=== PATIENT | female | born 1995 | race Caucasian/White ===

== ENCOUNTER 2017-03-17 15:42 | Observation (INO) ==
[2017-03-17] MEDS ORDERED: Ondansetron 4 MG/2 ML VIAL IVP ONE (15:59)
[2017-03-17] MEDS ORDERED: Ketorolac 15 MG/ML VIAL IVP ONE (15:59)
--- NOTE | 2017-03-17 16:02 | Emergency Department Note ---
Disposition Clinical Impression: Acute appendicitis Disposition: Admitted As Inpatient Condition: Good General Adult HPI - General Chief complaint: ED Abdominal Pain Stated complaint: ABD Pain Time Seen by Provider: 03/17/17 15:49 Source: patient, family Limitations: no limitations - History of Present Illness Pain Scale: 6 - Related Data Home Medications Medication Instructions Recorded Confirmed No Known Home Drugs 03/17/17 03/17/17 Allergies Allergy/AdvReac Type Severity Reaction Status Date / Time No Known Allergies Allergy Verified 03/17/17 15:44 Past Medical History - Past Medical History Medical history: Reports: no medical history Psychiatric history: Reports: no psych history - Social History Smoking Status: Never smoker Smokeless Tobacco Status: No Alcohol use: Reports: none Drug use: Reports: none Physical Exam - General Limitations: no limitations General appearance: alert, in no apparent distress Course Vital Signs Temperature 98.3 F 03/17/17 15:44 Pulse Rate 73 03/17/17 15:44 Respiratory Rate 16 03/17/17 15:44 Blood Pressure 132/87 03/17/17 15:44 O2 Sat by Pulse Oximetry 97 03/17/17 15:44 Temperature 98.3 F 03/17/17 15:44 Pulse Rate 93 03/17/17 17:06 Respiratory Rate 18 03/17/17 17:08 Blood Pressure 126/79 03/17/17 17:08 O2 Sat by Pulse Oximetry 96 03/17/17 17:06 Oxygen Delivery Oxygen Delivery Room Air Medical Decision Making - Lab Data Result diagrams: 03/17/17 16:17 03/17/17 16:17 Lab Results 03/17/17 03/17/17 03/17/17 Range/Units 15:55 15:55 16:17 WBC 8.6 (4.3-11.1) K/mcL RBC 4.40 (3.82-4.97) M/mcL Hgb 13.2 (11.5-15.4) g/dL Hct 39.3 (35.3-44.9) % MCV 89.3 (83.0-100.0) fL MCH 30.0 (28.0-33.3) pg MCHC 33.6 (31.6-35.5) g/dL RDW 11.9 (11.5-14.5) % Plt Count 202 (140-400) K/mcL MPV 9.7 (9.4-12.4) fL Immature Gran % 0.2 (0-4) % Seg Neutrophils % 65.4 % Lymphocytes % 28.4 % Monocytes % 5.6 % Eosinophils % 0.2 % Basophils % 0.2 % Neutrophils # 5.7 (1.6-8.9) K/mcL Lymphocytes # 2.5 (0.6-4.6) K/mcL Monocytes # 0.5 (0.0-1.3) K/mcL Eosinophils # 0.0 (0.0-0.6) K/mcL Basophils # 0.0 (0.0-0.2) K/mcL Sodium (136-145) mEq/L Potassium (3.5-4.5) mEq/L Chloride (98-109) mEq/L Carbon Dioxide (19-29) mEq/L BUN (7-20) mg/dL Creatinine (0.57-1.11) mg/dL Est GFR ( Amer) (> 60) Est GFR (Non-Af Amer) (> 60) BUN/Creatinine Ratio (6-26) Glucose (70-99) mg/dL Calculated Osmolality (280-300) Calcium (8.6-10.8) mg/dL Total Bilirubin (0.2-1.2) mg/dL AST (5-34) Units/L ALT (0-55) Units/L Alkaline Phosphatase (38-126) Units/L Serum Total Protein (6.0-8.3) g/dL Albumin (3.5-5.0) g/dL Globulin (2.4-3.5) g/dL Albumin/Globulin Ratio (1.1-2.2) Urine Color Yellow (Yellow) Urine Clarity Clear (Clear) Urine pH 6.5 (5.0-8.0) pH Units Ur Specific [place] 1.005 L (1.010-1.025) Urine Protein Negative (Neg-Trace) mg/dL Urine Glucose (UA) Normal (Normal) mg/dL Urine Ketones Negative (Negative) mg/dL Urine Blood Negative (Negative) Urine Nitrite Negative (Negative) Urine Bilirubin Negative (Negative) Urine Urobilinogen Normal (Normal) mg/dL Ur Leukocyte Esterase Negative (Negative) Ur Culture Indicated? NO (NO) Urine Test Negative (Negative) 03/17/17 Range/Units 16:17 WBC (4.3-11.1) K/mcL RBC (3.82-4.97) M/mcL Hgb (11.5-15.4) g/dL Hct (35.3-44.9) % MCV (83.0-100.0) fL MCH (28.0-33.3) pg MCHC (31.6-35.5) g/dL RDW (11.5-14.5) % Plt Count (140-400) K/mcL MPV (9.4-12.4) fL Immature Gran % (0-4) % Seg Neutrophils % % Lymphocytes % % Monocytes % % Eosinophils % % Basophils % % Neutrophils # (1.6-8.9) K/mcL Lymphocytes # (0.6-4.6) K/mcL Monocytes # (0.0-1.3) K/mcL Eosinophils # (0.0-0.6) K/mcL Basophils # (0.0-0.2) K/mcL Sodium 139 (136-145) mEq/L Potassium 3.3 L (3.5-4.5) mEq/L Chloride 107 (98-109) mEq/L Carbon Dioxide 26 (19-29) mEq/L BUN 9 (7-20) mg/dL Creatinine 0.78 (0.57-1.11) mg/dL Est GFR ( Amer) > 60 (> 60) Est GFR (Non-Af Amer) > 60 (> 60) BUN/Creatinine Ratio 12 (6-26) Glucose 93 (70-99) mg/dL Calculated Osmolality 286 (280-300) Calcium 9.3 (8.6-10.8) mg/dL Total Bilirubin 0.5 (0.2-1.2) mg/dL AST 18 (5-34) Units/L ALT 14 (0-55) Units/L Alkaline Phosphatase 72 (38-126) Units/L Serum Total Protein 7.2 (6.0-8.3) g/dL Albumin 4.1 (3.5-5.0) g/dL Globulin 3.1 (2.4-3.5) g/dL Albumin/Globulin Ratio 1.3 (1.1-2.2) Urine Color (Yellow) Urine Clarity (Clear) Urine pH (5.0-8.0) pH Units Ur Specific [place] (1.010-1.025) Urine Protein (Neg-Trace) mg/dL Urine Glucose (UA) (Normal) mg/dL Urine Ketones (Negative) mg/dL Urine Blood (Negative) Urine Nitrite (Negative) Urine Bilirubin (Negative) Urine Urobilinogen (Normal) mg/dL Ur Leukocyte Esterase (Negative) Ur Culture Indicated? (NO) Urine Test (Negative) Attestation Statement - Attestation Attestation: I examined this patient and my medical decision-making was reviewed with the [employer]/PA/Advanced Practice Nurse/Resident Physician. I agree with the documented findings, disposition and treatment plan as described except to the extent set forth below. Face to face time provided Patient was right-sided abdominal pain for the past one week. She is tender on exam. Positive peritoneal findings including obturator sign, voluntary guarding , mild rebound. When patient jumps at the bedside she guards. Concern for an acute surgical process including such as appendicitis. Workup in conjunction with Dr. Hartman initiated
[2017-03-17 16:04] LABS: Bilirubin,Urine Negative (Negative); Blood,Urine Negative (Negative); Clarity,Urine Clear (Clear); Color,Urine Yellow (Yellow); Glucose,Urine (UA) Normal (Normal); Ketones,Urine Negative (Negative); Leukocyte Esterase,Urine Negative (Negative); Nitrite,Urine Negative (Negative); PH,Urine 6.5 pH Units (5.0-8.0); Protein,Urine Negative (Neg-Trace); Specific Gravity,Urine 1.005 (1.010-1.025); Urobilinogen,Urine Normal (Normal)
--- NOTE | 2017-03-17 16:06 | Emergency Department Note ---
Disposition Clinical Impression: Acute appendicitis Qualifiers: Acute appendicitis type: unspecified acute appendicitis type Qualified Code(s) : K35.80 - Unspecified acute appendicitis Disposition: Admitted As Inpatient Condition: Good Time of Disposition: 17:09 Abdominal Pain HPI - General Chief Complaint: ED Abdominal Pain Stated Complaint: ABD Pain Time Seen by Provider: 03/17/17 15:49 Source: patient, family Mode of arrival: ambulatory Limitations: no limitations Nursing Notes Reviewed: Yes Vital Signs Reviewed: Yes - History of Present Illness HPI Narrative: 21-year-old female otherwise healthy presents with abdominal pain. She reports right-sided abdominal pain intermittently over the past week. Describes it as a sharp cramping sensation in the right upper quadrant. She reports some association with foods. States today was painful to walk or jump. Last night she ate cheesesteaks which made it worse. Last meal at 1100. She has been very nauseated but denies any vomiting. Denies any fevers or recent illness. Denies any chest pain or shortness of breath. Denies any urinary symptoms or vaginal bleeding. She has a history of a ruptured ovarian cyst. Denies any abdominal surgeries. Last alcohol intake February 26. She has not taken anything for pain. Pt Subjective Complaint: abdominal pain Pain Scale: 6 - Related Data Home Medications Medication Instructions Recorded Confirmed No Known Home Drugs 03/17/17 03/17/17 Allergies Allergy/AdvReac Type Severity Reaction Status Date / Time No Known Allergies Allergy Verified 03/17/17 15:44 All systems ED: reviewed and negative except as stated. Constitutional: Denies: fever, chills Cardiovascular: Denies: chest pain, dyspnea on exertion Respiratory: Denies: cough, dyspnea, wheezes Gastrointestinal: Reports: abdominal pain, nausea. Denies: vomiting, diarrhea Genitourinary: Denies: urgency, dysuria, abnormal menses Musculoskeletal: Denies: back pain Integumentary: Denies: rash, abrasion Neurological: Denies: headache Psychiatric: Denies: anxiety, depression Abdominal Pain PMH - Past Medical History Medical history: Reports: no medical history Psychiatric history: Reports: no psych history - Social History Smoking status: Never smoker Alcohol use: Reports: none Drug use: Reports: none Physical Exam - General Limitations: no limitations General appearance: alert, in no apparent distress - Head Head exam: atraumatic, normocephalic, normal inspection - Eye Eye exam: Present: normal appearance, PERRL, EOMI - ENT ENT exam: normal exam, normal oropharynx, mucous membranes moist - Neck Neck exam: Present: normal inspection, full ROM, trachea midline - Chest Chest inspection: Present: normal inspection, symmetric chest wall rise - Respiratory Respiratory exam: Present: normal lung sounds bilaterally. Absent: respiratory distress, wheezes - Cardiovascular Cardiovascular exam: Present: regular rate, normal rhythm, normal heart sounds - Abdominal Exam Abdominal exam: Present: soft, tenderness, guarding, normal bowel sounds, obturator sign, Chatterjee's sign, Rovsing's sign, tenderness at McBurney's Point. Absent: distention, rebound, rigidity Abdominal tenderness: Present: RUQ, RLQ - Extremities Exam Extremities exam: Present: normal inspection, full ROM, normal capillary refill. Absent: tenderness, pedal edema, calf tenderness - Back Exam Back exam: Present: normal inspection, full ROM. Absent: tenderness, CVA tenderness (R), CVA tenderness (L) - Neurological Exam Neurological exam: Present: alert, oriented X3 - Psychiatric Psychiatric exam: Present: normal affect, normal mood - Skin Skin exam: Present: warm, dry, intact, normal color Course Course Narrative: 21-year-old female presents with abdominal pain over the past week. Pain has been intermittent. She is afebrile and vital signs are normal. Her abdomen is soft but tender in the right lower quadrant positive McBurney sign. She is displaying some peritoneal signs when I ask her to jump. Denies any prior abdominal surgeries. Toward all for pain. Zofran for nausea. Will get a CT of her abdomen and pelvis to evaluate for possible appendicitis. CBC and electrolytes ordered. - Reevaluation(s) Reevaluation #1: Review of CT scan shows a large appendicolith. Will consult surgery Dr. Mcelroy. Labs reviewed and are unremarkable. Impression is acute appendicitis. Reevaluation #2: Dr. Mcelroy will take patient to the OR for lap appendectomy. Surgical consent was obtained by surgeon. Patient stable. - Consultations Consultation #1: Spoke to Dr. Mcelroy surgery regarding acute appendicitis. He will come down to evaluate patient. Vital Signs Temperature 98.3 F 03/17/17 15:44 Pulse Rate 73 03/17/17 15:44 Respiratory Rate 16 03/17/17 15:44 Blood Pressure 132/87 03/17/17 15:44 O2 Sat by Pulse Oximetry 97 03/17/17 15:44 Temperature 98.3 F 03/17/17 15:44 Pulse Rate 93 03/17/17 17:06 Respiratory Rate 18 03/17/17 17:08 Blood Pressure 126/79 03/17/17 17:08 O2 Sat by Pulse Oximetry 96 03/17/17 17:06 Oxygen Delivery Oxygen Delivery Room Air Abdominal Pain - Medical Records Medical records reviewed: Yes I reviewed the patient's medical records. - Lab Data Lab results reviewed: Yes I reviewed the patient's lab results. Result diagrams: 03/17/17 16:17 03/17/17 16:17 Lab Results 03/17/17 03/17/17 03/17/17 Range/Units 15:55 15:55 16:17 WBC 8.6 (4.3-11.1) K/mcL RBC 4.40 (3.82-4.97) M/mcL Hgb 13.2 (11.5-15.4) g/dL Hct 39.3 (35.3-44.9) % MCV 89.3 (83.0-100.0) fL MCH 30.0 (28.0-33.3) pg MCHC 33.6 (31.6-35.5) g/dL RDW 11.9 (11.5-14.5) % Plt Count 202 (140-400) K/mcL MPV 9.7 (9.4-12.4) fL Immature Gran % 0.2 (0-4) % Seg Neutrophils % 65.4 % Lymphocytes % 28.4 % Monocytes % 5.6 % Eosinophils % 0.2 % Basophils % 0.2 % Neutrophils # 5.7 (1.6-8.9) K/mcL Lymphocytes # 2.5 (0.6-4.6) K/mcL Monocytes # 0.5 (0.0-1.3) K/mcL Eosinophils # 0.0 (0.0-0.6) K/mcL Basophils # 0.0 (0.0-0.2) K/mcL Sodium (136-145) mEq/L Potassium (3.5-4.5) mEq/L Chloride (98-109) mEq/L Carbon Dioxide (19-29) mEq/L BUN (7-20) mg/dL Creatinine (0.57-1.11) mg/dL Est GFR ( Amer) (> 60) Est GFR (Non-Af Amer) (> 60) BUN/Creatinine Ratio (6-26) Glucose (70-99) mg/dL Calculated Osmolality (280-300) Calcium (8.6-10.8) mg/dL Total Bilirubin (0.2-1.2) mg/dL AST (5-34) Units/L ALT (0-55) Units/L Alkaline Phosphatase (38-126) Units/L Serum Total Protein (6.0-8.3) g/dL Albumin (3.5-5.0) g/dL Globulin (2.4-3.5) g/dL Albumin/Globulin Ratio (1.1-2.2) Urine Color Yellow (Yellow) Urine Clarity Clear (Clear) Urine pH 6.5 (5.0-8.0) pH Units Ur Specific [place] 1.005 L (1.010-1.025) Urine Protein Negative (Neg-Trace) mg/dL Urine Glucose (UA) Normal (Normal) mg/dL Urine Ketones Negative (Negative) mg/dL Urine Blood Negative (Negative) Urine Nitrite Negative (Negative) Urine Bilirubin Negative (Negative) Urine Urobilinogen Normal (Normal) mg/dL Ur Leukocyte Esterase Negative (Negative) Ur Culture Indicated? NO (NO) Urine Test Negative (Negative) 03/17/17 Range/Units 16:17 WBC (4.3-11.1) K/mcL RBC (3.82-4.97) M/mcL Hgb (11.5-15.4) g/dL Hct (35.3-44.9) % MCV (83.0-100.0) fL MCH (28.0-33.3) pg MCHC (31.6-35.5) g/dL RDW (11.5-14.5) % Plt Count (140-400) K/mcL MPV (9.4-12.4) fL Immature Gran % (0-4) % Seg Neutrophils % % Lymphocytes % % Monocytes % % Eosinophils % % Basophils % % Neutrophils # (1.6-8.9) K/mcL Lymphocytes # (0.6-4.6) K/mcL Monocytes # (0.0-1.3) K/mcL Eosinophils # (0.0-0.6) K/mcL Basophils # (0.0-0.2) K/mcL Sodium 139 (136-145) mEq/L Potassium 3.3 L (3.5-4.5) mEq/L Chloride 107 (98-109) mEq/L Carbon Dioxide 26 (19-29) mEq/L BUN 9 (7-20) mg/dL Creatinine 0.78 (0.57-1.11) mg/dL Est GFR ( Amer) > 60 (> 60) Est GFR (Non-Af Amer) > 60 (> 60) BUN/Creatinine Ratio 12 (6-26) Glucose 93 (70-99) mg/dL Calculated Osmolality 286 (280-300) Calcium 9.3 (8.6-10.8) mg/dL Total Bilirubin 0.5 (0.2-1.2) mg/dL AST 18 (5-34) Units/L ALT 14 (0-55) Units/L Alkaline Phosphatase 72 (38-126) Units/L Serum Total Protein 7.2 (6.0-8.3) g/dL Albumin 4.1 (3.5-5.0) g/dL Globulin 3.1 (2.4-3.5) g/dL Albumin/Globulin Ratio 1.3 (1.1-2.2) Urine Color (Yellow) Urine Clarity (Clear) Urine pH (5.0-8.0) pH Units Ur Specific [place] (1.010-1.025) Urine Protein (Neg-Trace) mg/dL Urine Glucose (UA) (Normal) mg/dL Urine Ketones (Negative) mg/dL Urine Blood (Negative) Urine Nitrite (Negative) Urine Bilirubin (Negative) Urine Urobilinogen (Normal) mg/dL Ur Leukocyte Esterase (Negative) Ur Culture Indicated? (NO) Urine Test (Negative) - Radiology Data Radiology results reviewed: Yes I reviewed the patient's radiology results. Abdomen/Pelvis CT 03/17/17 16:00 IMPRESSION: Findings consistent with acute appendicitis. D/ / Ravi Quiroga MD / Ravi Quiroga MD Interpreting Provider: Ravi Quiroga MD
[2017-03-17 16:29] LABS: Basophils % 0.2 %; Eosinophils % 0.2 %; Hematocrit 39.3 % (35.3-44.9); Hemoglobin 13.2 g/dL (11.5-15.4); Immature Granulocytes % 0.2 % (0-4); Lymphocytes # 2.5 K/mcL (0.6-4.6); Lymphocytes % 28.4 %; Mean Corpuscular HGB Conc 33.6 g/dL (31.6-35.5); Mean Corpuscular Volume 89.3 fL (83.0-100.0); Mean Platelet Volume 9.7 fL (9.4-12.4); Monocytes # 0.5 K/mcL (0.0-1.3); Monocytes % 5.6 %; Neutrophils # 5.7 K/mcL (1.6-8.9); Platelet Count 202 K/mcL (140-400); Red Cell Distribution Width 11.9 % (11.5-14.5); Segmented Neutrophils % 65.4 %
[2017-03-17 16:44] LABS: Alanine Aminotransferase 14 Units/L (0-55); Albumin 4.1 g/dL (3.5-5.0); Albumin/Globulin Ratio 1.3 (1.1-2.2); Alkaline Phosphatase 72 Units/L (38-126); Aspartate Amino Transferase 18 Units/L (5-34); BUN/Creatinine Ratio 12 (6-26); Bilirubin,Total 0.5 mg/dL (0.2-1.2); Blood Urea Nitrogen 9 mg/dL (7-20); Calcium 9.3 mg/dL (8.6-10.8); Carbon Dioxide 26 mEq/L (19-29); Chloride 107 mEq/L (98-109); Globulin 3.1 g/dL (2.4-3.5); Glucose 93 mg/dL (70-99); Osmolality,Calculated 286 (280-300); Potassium 3.3 mEq/L (3.5-4.5); Sodium 139 mEq/L (136-145); Total Protein 7.2 g/dL (6.0-8.3); eGFR For African Americans > 60 (> 60); eGFR For Non-African Americans > 60 (> 60)
--- NOTE | 2017-03-17 17:14 | General Surg History&Physical ---
Date of Encounter: 03/17/17 Time of Encounter: 17:00 Assessment and Plan (1) Acute appendicitis Current Visit: Yes Status: Acute The assessment and plan as outlined above was discussed with the patient and/or family members who expressed understanding and agreement. All questions were answered. The patient has acute appendicitis by CAT scan and clinical history. I have recommended laparoscopic appendectomy. I discussed the risks and benefits of surgery with her and she wishes to proceed. We will plan urgent laparoscopic appendectomy. Qualifiers: Acute appendicitis type: unspecified acute appendicitis type Qualified Code (s): K35.80 - Unspecified acute appendicitis History of Present Illness Chief complaint: Abdominal pain HPI: Ms. Moreno is a 21 year old female Who has had abdominal pain for the last 7 days. This worsened the last 2-3 days. She had central abdominal pain associated with intense nausea. She now has right lower quadrant pain with motion. She denies vomiting. She has a negative test and is recently had her menstrual period. She sought evaluation in emergency. Although her white blood cell count is normal, CAT scan demonstrates acute appendicitis with appendicolith and likely appendiceal obstruction. She now presents for urgent appendectomy. Past Med Surg Social Fam HX - Past Medical History Medical history: no medical history Psychiatric history: no psych history - Social History Smoking Status: Never smoker Smokeless Tobacco Status: No Alcohol use: none Drug use: none Medications and Allergies No Known Home Drugs 03/17/17 [History] Allergies No Known Allergies Allergy (Verified 03/17/17 15:44) Review of Systems All systems PM: A 10-system review of systems was performed and is negative for pertinent findings except as documented above in the HPI. General Surgery Exam Initial Vital Signs Temp Pulse Resp BP Pulse Ox 98.3 F 73 16 132/87 97 03/17/17 15:44 03/17/17 15:44 03/17/17 15:44 03/17/17 15:44 03/17/17 15:44 - General physical appearance well developed, well nourished, no distress - Neck no masses, no bruits, trachea midline, no lymphadectomy, no venous distension - Respiratory normal expansion, normal respiratory effort, clear to percussion, clear to auscultation - Cardiovascular Cardiovascular exam: Present: RRR, 15, 16 - Abdomen Abdomen general surgery: Present: bowel sounds present, tender Abdominal Tenderness: Present: RLQ - Neurologic Present: CN 2-12 grossly intact, normal coordination, normal sensation - Psychiatric Psychiatric general surgery: Present: appropriate, oriented to person, oriented to place, oriented to time, speech is normal, memory intact Results - Labs 03/17/17 16:17 03/17/17 16:17 Abnormal lab results Potassium 3.3 mEq/L (3.5-4.5) L 03/17/17 16:17 Ur Specific [place] 1.005 (1.010-1.025) L 03/17/17 15:55 All other labs normal. - Imaging CT scan - abdomen: image reviewed (I personally reviewed the CAT scan findings are consistent with appendicolith and appendiceal obstruction with periappendiceal inflammation)
[2017-03-17] MEDS ORDERED: CefOXitin 1,000 MG VIAL ONE (17:38)
--- NOTE | 2017-03-17 17:43 | Anesthesia Evaluation PreOp ---
Date of Encounter: 03/17/17 Time of Encounter: 17:41 - Past History Planned Operation: Laparoscopic Appendectomy Cardiac History: Denies any Significant Hx Pulmonary History: Denies Any Significant HX CARE ASST History: Denies Any Significant HX Other Medical History: Denies Any Significant HX Anesthesia History: No Prior Anesthetic Complications, Past Anesthesia Test: Negative (03/17/2017) Alcohol Use: none Drug use: none Medications and Allergies No Known Home Drugs 03/17/17 [History] Allergies No Known Allergies Allergy (Verified 03/17/17 15:44) - Meds/Allergy Pre-op Review Medications Reviewed: Yes Allergies Reviewed: Yes Beta Blockers on Current Med List: No Anesthesia Results - Labs 03/17/17 16:17 03/17/17 16:17 Laboratory Tests 03/17/17 15:55 Urine Test Negative Anesthesia Exam Vital Signs/O2 Sat, Most Current Temp Pulse Resp BP Pulse Ox 98.3 F 93 18 126/79 96 03/17/17 15:44 03/17/17 17:06 03/17/17 17:08 03/17/17 17:08 03/17/17 17:06 Height: 5'1''/1.55 m Weight: 120 lbs/54.431 kg NPO (# of Hours): 7 Pain Scale: 6 Pain Scale Used: Numeric (1 - 10) - HEENT Pupil (Motor): EOMI Mallampati: II Teeth: Normal Oral Opening: Greater than 3 - CARE ASST LOC: Oriented CARE ASST Motor: Normal RUE, Normal LUE, Normal RLE, Normal LLE, Normal Face CARE ASST Sensory: Normal: RUE, LUE, RLE, LLE, Face - Cardiac Rhythm: Regular Murmur: None - Pulmonary Breath Sounds: bilateral Clear Respiratory Effort: Symmetrical Anesthesia Assess/Plan ASA Score: 1 Modified [place] Scale for Level of Consciousness: Cooperative, oriented, and tranquil Anesthetic Plan: General Monitoring Plan: Standard Monitors Recovery Plan: PACU
[2017-03-17] MEDS ORDERED: Ondansetron 4 MG/2 ML VIAL ONE (17:55)
[2017-03-17] MEDS ORDERED: Lidocaine -MPF 4% 5 ML AMPUL ONE (17:55)
[2017-03-17] MEDS ORDERED: *HR* Rocuronium Bromide 50 MG/5 ML VIAL ONE (17:55)
[2017-03-17] MEDS ORDERED: Dexamethasone 4 MG/ML VIAL ONE (17:55)
[2017-03-17] MEDS ORDERED: Lidocaine -MPF 2% 2 ML VIAL ONE (17:55)
[2017-03-17] MEDS ORDERED: *HR* FentaNYL (PF) 100 MCG/2 ML VIAL ONE ×2 (17:56→18:23)
[2017-03-17] MEDS ORDERED: *HR* Propofol 200 MG/20 ML VIAL IVP ONE (17:56)
[2017-03-17] MEDS ORDERED: *HR* Midazolam HCl 2 MG/2 ML VIAL ONE ×2 (17:56→19:50)
[2017-03-17] MEDS ORDERED: CefOXitin 2,000 MG VIAL IVPB ONE (18:07)
[2017-03-17] MEDS ORDERED: *HR* Promethazine 25 MG/ML VIAL IVP PRN (18:35)
[2017-03-17] MEDS ORDERED: Neostigmine Methylsulfate 3 MG/3 ML SYRINGE ONE (18:38)
--- NOTE | 2017-03-17 18:52 | Operative Note ---
Date of procedure: 03/17/17 Pre-op diagnosis: Acute appendicitis Post-op diagnosis: same Procedure: Laparoscopic appendectomy Anesthesia: JAQUELIN Surgeon: Mehrdad Mcelroy Estimated blood loss (cc): 10 Specimen: Appendix Condition: stable Disposition: PACU Procedure in Detail: After informed consent patient was taken to the major operative suite and placed in supine position and given adequate general anesthetic. The abdomen was prepped and draped in sterile fashion utilizing ChloraPrep standard draping techniques. Thiago taken patient was identified. I made a vertical midline incision below the umbilicus and dissected down to level of fascia. 2 traction stitches were placed with 0 Vicryl. The abdomen was visualized. I placed a Olivera trocar the abdomen and insufflated to 15 mmHg pressure CO2. Placed a 5 mm trocar in the left suprapubic area and a 12 trocar in the right upper quadrant. The appendix was identified and acutely obstructed and inflamed. I grasped and elevated the appendix and cecum. I developed the avascular window at the base of the appendix between the mesial appendix and cecum. The base of the cecum was divided with a gastrointestinal staple load laparoscopic stapler. The mesoappendix was divided with a vascular load laparoscopic stapler. The appendix was removed in a specimen bag through the umbilical port site. I replaced the umbilical port and irrigated the pelvis and appendectomy site with copious amounts of antibiotic containing solution. The uterus was normal the right tube and ovary was normal and photographed. The staple line was intact. There was no bleeding and no leak. All trochars were removed. Fascia was closed with 0 Vicryl and the skin with 2-0 and 4-0 Vicryl.
[2017-03-17] MEDS: *HR* HYDROmorphone (PF) 1 MG/ML SYRINGE IVP PRN ×6 (19:12→20:46)
[2017-03-17] MEDS ORDERED: Acetaminophen IV 1,000 MG/100 ML INFUS..BTL ONE (19:35)
[2017-03-17] MEDS ORDERED: Acetaminophen IV 1,000 MG/100 ML INFUS..BTL IVPB ONE (19:42)
[2017-03-17] MEDS ORDERED: Ketorolac 15 MG/ML VIAL ONE (19:50)
[2017-03-17] MEDS ORDERED: Gabapentin 300 MG CAPSULE ONE (19:51)
[2017-03-17] MEDS ORDERED: *HR* HYDROmorphone (PF) 1 MG/ML SYRINGE ONE (19:56)
[2017-03-17] MEDS ORDERED: Ringers Solution, Lactated 1,000 ML ONE (20:24)
[2017-03-17] MEDS ORDERED: *HR* OxyCODONE/APAP 5/325 TABLET PO PRN (20:38)
[2017-03-17] MEDS ORDERED: 0.9 % Sodium Chloride 1,000 ML IVC SCH (20:38)
[2017-03-17] MEDS: Ondansetron 4 MG/2 ML VIAL IVP PRN (20:46)
[2017-03-17] MEDS: cefOXitin 2,000 MG in D5% in Water (Mini-Bag+) 100 ML IVPB SCH (23:51)
--- NOTE | 2017-03-17 23:55 | Anesthesia Evaluation Post Op ---
Date of Encounter: 03/17/17 Time of Encounter: 20:00 - Vital Signs Vital Signs: Vital Signs Temp Pulse Resp BP Pulse Ox 03/17/17 23:25 98.5 F 85 16 106/66 98 03/17/17 21:10 98 F 115 16 115/7 97 03/17/17 20:58 97.9 F 98 16 102/69 98 03/17/17 20:28 98.5 F 97 16 103/68 96 03/17/17 20:18 98.0 F 80 16 111/64 100 03/17/17 20:07 87 16 95/76 100 03/17/17 19:57 93 16 111/77 100 03/17/17 19:47 97.8 F 90 16 120/82 100 03/17/17 19:37 84 12 117/77 93 03/17/17 19:27 87 12 117/80 100 03/17/17 19:17 96 12 120/79 99 03/17/17 19:07 97.6 F 124 12 124/83 100 03/17/17 17:08 18 126/79 03/17/17 17:06 93 18 126/79 96 03/17/17 15:44 98.3 F 73 16 132/87 97 Intake and Output 03/17/17 03/17/17 03/17/17 07:59 15:59 23:59 Output Total Balance -20 / -20 Output: Estimated Blood Loss Other: # Voids 1 Weight 54.431 kg Patient Weight 03/17/17 23:59 Weight 54.431 kg - Lungs Lungs: Clear Ascult./Percussion - Airway Airway: Non-obstructed - Cardiovascular Regular Rate - Mental Status Mental Status: Alert & Oriented, Answers Appropriately - Pain Pain Scale: 4 Pain Scale used: Numeric (1 - 10) - Nausea Vomiting Nausea Vomiting: Not Present - Hydration Hydration: Ice chips, Has not voided - Discharge PostOp Status: Transfer Patient to floor Anes Supervising Prov Stmt: Pt seen/evalutated, VSS and pt has met criteria for discharge to floor. - MD Mayur
[2017-03-18] MEDS: *HR* HYDROmorphone (PF) 1 MG/ML SYRINGE IVP PRN ×2 (02:06→03:56)
[2017-03-18] MEDS: Ondansetron 4 MG/2 ML VIAL IVP PRN ×2 (03:56→07:21)
[2017-03-18] MEDS ORDERED: *HR* Heparin 5,000 UNIT/ML VIAL SQ SCH (06:00)
[2017-03-18 07:04] VITALS: BP 105/75
[2017-03-18] MEDS: cefOXitin 2,000 MG in D5% in Water (Mini-Bag+) 100 ML IVPB SCH (07:22)
[2017-03-18] MEDS ORDERED: Simethicone 80 MG TAB.CHEW PO PRN (10:58)
--- NOTE | 2017-03-18 11:04 | Discharge Summary ---
Date of Encounter: 03/18/17 Time of Encounter: 11:00 - Discharge Diagnosis (1) Acute appendicitis Priority: Primary Status: Resolved Qualifiers: Acute appendicitis type: unspecified acute appendicitis type Qualified Code (s): K35.80 - Unspecified acute appendicitis - Discharge Medications Prescriptions: OxyCODONE/APAP 5/325 [Percocet 5/325 MG] 1 each PO Q4HR PRN #30 tablet PRN Reason: Moderate Pain Ibuprofen [Motrin] 800 mg PO Q8HR PRN #50 tablet PRN Reason: Mild Pain Docusate [Colace] 100 mg PO BID #30 capsule Simethicone [Gas-X] 80 mg PO TID PRN #20 tab.chew PRN Reason: Dyspepsia Home Medications: Docusate [Colace] 100 mg PO BID #30 capsule 03/18/17 [Rx] Ibuprofen [Motrin] 800 mg PO Q8HR PRN #50 tablet 03/18/17 [Rx] OxyCODONE/APAP 5/325 [Percocet 5/325 MG] 1 each PO Q4HR PRN #30 tablet 03/18/17 [Rx] Simethicone [Gas-X] 80 mg PO TID PRN #20 tab.chew 03/18/17 [Rx] Allergies/Adverse Reactions: Allergies No Known Allergies Allergy (Verified 03/17/17 15:44) General Surgery Exam Initial Vital Signs Temp Pulse Resp BP Pulse Ox 98.3 F 73 16 132/87 97 03/17/17 15:44 03/17/17 15:44 03/17/17 15:44 03/17/17 15:44 03/17/17 15:44 - General physical appearance well developed, well nourished, no distress - Eyes normal ocular movement - ENT normal mucosa, atraumatic, normocephalic - Neck trachea midline - Respiratory normal respiratory effort, clear to auscultation - Cardiovascular Cardiovascular exam: Present: RRR - Abdomen Abdomen general surgery: Present: bowel sounds present, soft, tender (Expected postoperative tenderness) - Incision Incision: Present: clean and dry, intact - Integumentary Integumentary general surgery: Present: warm and dry - Neurologic Present: CN 2-12 grossly intact - Psychiatric Psychiatric general surgery: Present: appropriate, oriented to person, oriented to place, oriented to time, speech is normal, memory intact Date of admission: 03/17/17 16:53 Primary care physician: Marian Limon, Discharging clinician: Mehrdad Mcelroy (Susy Puente) Anticipated date of discharge: 03/18/17 - Patient Status Disposition: Home, Self-Care Condition: Good Overall status at discharge: patient is progressing back to baseline - Discharge Instructions Follow Up With: Marian Limon CNP [Primary Care Provider] - Brit Puente CNP [Advanced Practice Nurse] - 03/30/17 9:15 am (surgery follow-up) Forms: Work/School Release Additional Instructions: #1 may shower, no tub bath or swimming for 2 weeks #2 wash incisions with soap and water and pat dry daily #3 no lifting, pushing, pulling more than 15 pounds for the next 2 weeks #4 no driving until off narcotics for 24 hours and able to safely react in the car #5 may climb stairs - Diet and Activity Activity: other (See additional instructions about) Diet: advance to your usual diet - Hospital Course Hospital course: Ms. Moreno is a 21 year old female presented to the hospital with complaints of acute onset of abdominal pain. She was found to have acute appendicitis. She was started on IV antibiotics and taken to the operating room for laparoscopic appendectomy with Dr. Mcelroy. On postoperative day #1, she states that her preoperative pain has resolved. Her vital signs are stable and she is afebrile. She is tolerating a liquid diet without nausea or vomiting. She is voiding and ambulating without difficulty. Her only complaint currently is postoperative gas pain and we will order simethicone for management of this symptom. We will begin discharge planning and plan for outpatient follow-up in the next 10-14 days. - Time Spent with Patient Total time spent providing and/or coordinating discharge services: Less than 30 minutes - Attending Attestation I examined this patient and my medical decision-making was reviewed with the NIGHT TIME BABYSITTER/PA/Advanced Practice Nurse/Resident Physician. I agree with the documented findings, disposition and treatment plan as described except to the extent set forth below.
[2017-03-18] MEDS ORDERED: Ibuprofen 800 MG TABLET PO ONE (11:07)
== END 2017-03-18 12:05 | disposition home or self-care (01) ==
LOC: EMEROO 15:42 → 3ANU 15:42
PROVIDERS: ADMIT Surgery; ATTEND Surgery

== ENCOUNTER → 2020-07-26 17:25 | Observation (INO) ==
[~2020-07-26 17:25] MED LIST: Betamethasone Acet/SodPhos 30 MG/5 ML VIAL IM SCH; Terbutaline 1 MG/ML VIAL SQ ONE
== END | disposition home or self-care (01) ==
LOC: 1NENULAB
PROVIDERS: ADMIT Obstetrics & Gynecology; ATTEND Obstetrics & Gynecology

== ENCOUNTER 2020-08-30 15:42 | Observation (INO) | END 2020-08-30 16:45 | disposition home or self-care (01) | LOC: 1NENULAB | PROVIDERS: ADMIT Obstetrics & Gynecology; ATTEND Obstetrics & Gynecology ==

== ENCOUNTER 2020-08-31 19:53 | Inpatient (IN) ==
[2020-08-31] MEDS ORDERED: Famotidine 20 MG/2 ML VIAL IVP PRN (20:07)
[2020-08-31] MEDS ORDERED: Ondansetron 4 MG/2 ML VIAL IVP PRN ×2 (20:07→22:10)
[2020-08-31] MEDS ORDERED: Metoclopramide 10 MG/2 ML VIAL IVP PRN (20:07)
[2020-08-31] MEDS ORDERED: Naloxone 0.4 MG/ML INJ IVP PRN ×2 (20:07→22:10)
[2020-08-31] MEDS ORDERED: *HR* FentaNYL (PF) 100 MCG/2 ML VIAL IVP PRN (20:07)
[2020-08-31] MEDS ORDERED: miSOPROStoL 25 MCG TABLET VG PRN (20:09)
[2020-08-31] MEDS ORDERED: Ringers Solution, Lactated 1,000 ML ONE (20:31)
[2020-08-31] MEDS: Ringers Solution, Lactated 1,000 ML IVC SCH (20:41)
[2020-08-31 20:49] LABS: Immature Granulocytes % 0.3 % (0-4); Monocytes % 5.9 %; Red Cell Distribution Width 12.1 % (11.5-14.5)
[2020-08-31 20:51] LABS: Basophils % 0.3 %; Eosinophils % 0.1 %; Hematocrit 36.5 % (35.3-44.9); Immature Platelets 8.9 % (1.1-6.1); Lymphocytes # 2.7 K/mcL (0.6-4.6); Mean Corpuscular HGB Conc 32.9 g/dL (31.6-35.5); Mean Corpuscular Hemoglobin 30.7 pg (28.0-33.3); Mean Corpuscular Volume 93.4 fL (83.0-100.0); Mean Platelet Volume 11.5 fL (9.4-12.4); Monocytes # 0.6 K/mcL (0.0-1.3); Neutrophils # 6.3 K/mcL (1.6-8.9); Platelet Count 112 K/mcL (140-400); Red Blood Count 3.91 M/mcL (3.82-4.97); Segmented Neutrophils % 65.4 %; White Blood Count 9.7 K/mcL (4.3-11.1)
[2020-08-31 20:58] LABS: Amphetamine Screen,Urine Negative ng/mL (Cutoff=1000); Barbiturate Screen,Urine Negative ng/mL (Cutoff=200); Benzodiazepines Screen,Urine Negative ng/mL (Cutoff=200); Cannabinoid Screen,Urine Negative ng/mL (Cutoff = 50); Cocaine Screen,Urine Negative ng/mL (Cutoff= 300); Creatinine,Urine 51 mg/dL; Opiate Screen,Urine Negative ng/mL (Cutoff=300); Phencyclidine Screen,Urine Negative ng/mL (Cutoff=25); Protein/Creatinine Ratio,Urine 0.41 mg/mg (0.00-0.20)
[2020-08-31 21:07] LABS: Alanine Aminotransferase 18 Units/L (7-52); Aspartate Amino Transferase 22 Units/L (13-39); BUN/Creatinine Ratio 21 (6-26); Blood Urea Nitrogen 14 mg/dL (6-20); Lactate Dehydrogenase 157 Units/L (140-271); Uric Acid 5.8 mg/dL (2.3-7.6); eGFR For African Americans > 60 (> 60); eGFR For Non-African Americans > 60 (> 60)
[2020-08-31 21:12] LABS: Large Platelets Present (Not Present); Platelet Estimate Slight Decrease (Normal)
[2020-08-31] MEDS ORDERED: EPHEDrine 50 MG/ML VIAL IVP PRN (22:10)
[2020-08-31] MEDS ORDERED: Ropivacaine/PF 0.2% 20 ML VIAL EP ONE (22:10)
[2020-08-31] MEDS ORDERED: *HR* FentaNYL (PF) 100 MCG/2 ML VIAL EP ONE (22:10)
[2020-09-01] MEDS ORDERED: Oxytocin 20 units/ LR 1000 mL 20 UNIT/1,000 ML BAG IVC SCH (00:30)
[2020-09-01] MEDS: Ringers Solution, Lactated 1,000 ML IVC SCH ×3 (03:30→13:17)
[2020-09-01] MEDS ORDERED: *HR* FentaNYL (PF) 100 MCG/2 ML VIAL ONE ×2 (10:23→22:08)
[2020-09-01] MEDS ORDERED: Bupivacaine-MPF 0.25% 10 ML VIAL ONE (10:23)
[2020-09-01] MEDS: Epidural Premix (fent/bupiv) 110 ML EP SCH ×2 (11:31→18:22)
[2020-09-01] MEDS ORDERED: *HR* Labetalol 20 MG/4 ML SYRINGE IVP ONE ×3 (16:14→18:18)
[2020-09-01] MEDS ORDERED: 0.9 % Sodium Chloride 1,000 ML ONE (21:13)
[2020-09-01] MEDS ORDERED: Metoclopramide 10 MG/2 ML VIAL IVP ONE (22:04)
[2020-09-01] MEDS ORDERED: Ringers Solution, Lactated 1,000 ML IVC ONE (22:04)
[2020-09-01] MEDS ORDERED: Famotidine 20 MG/2 ML VIAL IVP ONE (22:04)
[2020-09-01] MEDS ORDERED: Oxytocin 20 units/ LR 1000 mL 20 UNIT/1,000 ML BAG IVC ONE (22:04)
[2020-09-01] MEDS ORDERED: CeFAZolin 2,000 MG/50 ML BAG IVPB ONE (22:04)
[2020-09-01] MEDS ORDERED: Azithromycin 500 MG in 0.9 % Sodium Chloride 250 ML IVPB ONE (22:05)
[2020-09-01] MEDS ORDERED: Lidocaine/EPI 1:200k 2% PF 20 ML VIAL ONE (22:08)
[2020-09-01] MEDS ORDERED: *HR* Oxytocin 10 UNIT/ML VIAL IM ONE (22:10)
[2020-09-01] MEDS ORDERED: Ketamine *HR* 500 MG/10 ML MDV ONE (22:47)
[2020-09-01] MEDS ORDERED: *HR* Morphine Sulfate/PF 10 MG/10 ML AMPUL ONE (23:00)
[2020-09-01] MEDS ORDERED: Acetaminophen IV 1,000 MG/100 ML BAG ONE (23:05)
[2020-09-01] MEDS ORDERED: Ondansetron 4 MG/2 ML VIAL IVP PRN (23:22)
[2020-09-01] MEDS ORDERED: *HR* FentaNYL (PF) 100 MCG/2 ML VIAL IVP PRN (23:22)
[2020-09-01] MEDS ORDERED: Naloxone 0.4 MG/ML INJ IVP PRN (23:22)
[2020-09-02] MEDS ORDERED: Ringers Solution, Lactated 1,000 ML IVC SCH (01:48)
[2020-09-02] MEDS ORDERED: Simethicone 80 MG TAB.CHEW PO PRN (01:48)
[2020-09-02] MEDS ORDERED: Rho Immune Globulin 1,500 UNIT SYRINGE IM ONE (01:48)
[2020-09-02] MEDS ORDERED: Oxytocin 20 units/ LR 1000 mL 20 UNIT/1,000 ML BAG IVC SCH ×2 (01:48)
[2020-09-02] MEDS ORDERED: Metoclopramide 10 MG/2 ML VIAL IVP PRN (01:48)
[2020-09-02] MEDS ORDERED: Sennosides 8.6 MG TABLET PO PRN (01:48)
[2020-09-02] MEDS ORDERED: Ondansetron 4 MG/2 ML VIAL IVP PRN (01:48)
[2020-09-02 05:38] LABS: Basophils % 0.1 %; Hematocrit 28.7 % (35.3-44.9); Immature Granulocytes % 0.4 % (0-4); Lymphocytes # 1.9 K/mcL (0.6-4.6); Lymphocytes % 13.7 %; Mean Corpuscular HGB Conc 32.4 g/dL (31.6-35.5); Mean Corpuscular Hemoglobin 30.5 pg (28.0-33.3); Mean Corpuscular Volume 94.1 fL (83.0-100.0); Monocytes # 0.7 K/mcL (0.0-1.3); Monocytes % 5.2 %; Red Blood Count 3.05 M/mcL (3.82-4.97); Red Cell Distribution Width 12.1 % (11.5-14.5); Segmented Neutrophils % 80.6 %; White Blood Count 13.6 K/mcL (4.3-11.1)
[2020-09-02 05:39] LABS: Hemoglobin 9.3 g/dL (11.5-15.4); Platelet Count 81 K/mcL (140-400)
[2020-09-02] MEDS: Ibuprofen 600 MG TABLET PO PRN ×2 (07:47→17:06)
[2020-09-02] MEDS: Prenatal Vit/FA 1 EACH TABLET PO SCH (07:47)
[2020-09-02] MEDS ORDERED: [UNRECOGNIZED DRUG - OTHER] PO SCH (09:00)
[2020-09-02] MEDS ORDERED: Acetaminophen 325 MG TABLET PO PRN (21:37)
[2020-09-03] MEDS: Ibuprofen 600 MG TABLET PO PRN ×2 (07:53→13:58)
[2020-09-03] MEDS: Prenatal Vit/FA 1 EACH TABLET PO SCH (07:54)
[2020-09-03 08:09] VITALS: BP 133/94
[2020-09-03] MEDS: *HR* OxyCODONE/APAP 5/325 TABLET PO PRN ×2 (09:02→15:11)
[2020-09-03 11:03] LABS: Basophils % 0.1 %; Eosinophils % 0.2 %; Hemoglobin 8.8 g/dL (11.5-15.4); Red Cell Distribution Width 12.5 % (11.5-14.5)
[2020-09-03 11:05] LABS: Hematocrit 26.6 % (35.3-44.9); Immature Granulocytes % 0.5 % (0-4); Immature Platelets 4.1 % (1.1-6.1); Mean Corpuscular HGB Conc 33.1 g/dL (31.6-35.5); Mean Corpuscular Hemoglobin 31.2 pg (28.0-33.3); Mean Corpuscular Volume 94.3 fL (83.0-100.0); Mean Platelet Volume 10.7 fL (9.4-12.4); Monocytes # 0.6 K/mcL (0.0-1.3); Monocytes % 5.2 %; Neutrophils # 8.7 K/mcL (1.6-8.9); Red Blood Count 2.82 M/mcL (3.82-4.97)
[2020-09-03 11:07] LABS: Lymphocytes # 1.7 K/mcL (0.6-4.6); Platelet Count 87 K/mcL (140-400)
[2020-09-03 11:37] LABS: Alanine Aminotransferase 13 Units/L (7-52); Aspartate Amino Transferase 28 Units/L (13-39); BUN/Creatinine Ratio 18 (6-26); Blood Urea Nitrogen 11 mg/dL (6-20); Lactate Dehydrogenase 229 Units/L (140-271); Uric Acid 5.1 mg/dL (2.3-7.6); eGFR For African Americans > 60 (> 60); eGFR For Non-African Americans > 60 (> 60)
== END 2020-09-03 16:13 | disposition home or self-care (01) | DRG 787 ==
LOC: 1NENULAB 19:53 → 1NENUOBS 09-02 01:47
PROVIDERS: ADMIT Advanced Practice Midwife; ATTEND Advanced Practice Midwife

== ENCOUNTER 2020-09-05 21:42 | Observation (INO) ==
[2020-09-05] MEDS ORDERED: *HR* OxyCODONE/APAP 5/325 TABLET PO PRN (22:17)
[2020-09-05] MEDS ORDERED: Simethicone 80 MG TAB.CHEW PO PRN (22:17)
[2020-09-05] MEDS ORDERED: Ondansetron 4 MG/2 ML VIAL IVP PRN (22:17)
[2020-09-05] MEDS ORDERED: *HR* Labetalol 20 MG/4 ML SYRINGE IVP PRN (22:17)
[2020-09-05] MEDS ORDERED: Calcium Gluconate 1,000 MG/10 ML VIAL IVP PRN (22:17)
[2020-09-05] MEDS ORDERED: Metoclopramide 10 MG/2 ML VIAL IVP PRN (22:17)
[2020-09-05 22:38] LABS: Basophils % 0.2 %; Eosinophils # 0.2 K/mcL (0.0-0.6); Eosinophils % 1.5 %; Hematocrit 31.2 % (35.3-44.9); Hemoglobin 10.2 g/dL (11.5-15.4); Immature Granulocytes % 0.8 % (0-4); Lymphocytes # 2.4 K/mcL (0.6-4.6); Lymphocytes % 20.2 %; Mean Corpuscular HGB Conc 32.7 g/dL (31.6-35.5); Mean Corpuscular Hemoglobin 30.8 pg (28.0-33.3); Mean Corpuscular Volume 94.3 fL (83.0-100.0); Mean Platelet Volume 9.7 fL (9.4-12.4); Monocytes # 0.7 K/mcL (0.0-1.3); Monocytes % 5.7 %; Neutrophils # 8.5 K/mcL (1.6-8.9); Platelet Count 158 K/mcL (140-400); Red Blood Count 3.31 M/mcL (3.82-4.97); Red Cell Distribution Width 12.5 % (11.5-14.5); Segmented Neutrophils % 71.6 %; White Blood Count 11.8 K/mcL (4.3-11.1)
[2020-09-05 23:01] LABS: Alanine Aminotransferase 35 Units/L (7-52); Aspartate Amino Transferase 34 Units/L (13-39); BUN/Creatinine Ratio 24 (6-26); Blood Urea Nitrogen 14 mg/dL (6-20); Lactate Dehydrogenase 215 Units/L (140-271); Uric Acid 4.5 mg/dL (2.3-7.6); eGFR For African Americans > 60 (> 60); eGFR For Non-African Americans > 60 (> 60)
[2020-09-05] MEDS ORDERED: Ringers Solution, Lactated 1,000 ML ONE (23:46)
[2020-09-05] MEDS: Magnesium Sulf 20 gm/SW 500mL 20 GM/500 ML IV.SOLN IVC SCH (23:51)
[2020-09-06] MEDS: Prenatal Vit/FA 1 EACH TABLET PO SCH (07:24)
[2020-09-06] MEDS: Magnesium Sulf 20 gm/SW 500mL 20 GM/500 ML IV.SOLN IVC SCH ×3 (09:28→21:07)
[2020-09-06] MEDS: NIFEdipine XL (24 HR) 30 MG TAB.ER.24 PO SCH (10:24)
[2020-09-06] MEDS ORDERED: Ringers Solution, Lactated 1,000 ML ONE (12:01)
[2020-09-06] MEDS: Ibuprofen 600 MG TABLET PO PRN (16:07)
[2020-09-06] MEDS ORDERED: Lanolin 7 G OINT...G. TP PRN (16:14)
[2020-09-06] MEDS ORDERED: Ammonia Inhalant AMPUL IH ONE (17:21)
[2020-09-07] MEDS: Ibuprofen 600 MG TABLET PO PRN ×2 (04:12→11:47)
[2020-09-07 08:00] VITALS: BP 117/77
[2020-09-07] MEDS: NIFEdipine XL (24 HR) 30 MG TAB.ER.24 PO SCH ×2 (08:39→08:42)
[2020-09-07] MEDS: Prenatal Vit/FA 1 EACH TABLET PO SCH ×2 (08:39→08:43)
== END 2020-09-07 11:56 | disposition home health service (06) ==
LOC: 1NENUOBS 21:42 → EMEROOARM 21:42 → 1NENUOBS 23:25
PROVIDERS: ADMIT Registered Nurse; ATTEND Registered Nurse